=== PATIENT | female | born 1990 | race Caucasian/White ===

== ENCOUNTER 2016-10-23 00:47 | Emergency (ER) | payer OTHER ==
[2016-10-23 00:56] VITALS: RESP 18
--- NOTE | 2016-10-23 01:15 | EDPHY ---
H & P Stated Complaint: fell backwaaards and hit head, dizzy, + etoh HPI/ROS: HPI CHIEF COMPLAINT: Head injury after alcohol marijuana HISTORY OF PRESENT ILLNESS: This patient 26-year-old female, she presents emergency room she is otherwise healthy, she drank 4 beers and 1 shot of liquor and smoked marijuana fell backwards in a chair with head strike. She now has a posterior headache. Unclear if she had LOC. No seizure activity reported. Past Medical History: No significant medical Past Surgical History: No significant surgical history Social History: Denies daily use drugs alcohol tobacco products however had multiple beers and a shot and marijuana this evening. Family History: Noncontributory ROS REVIEW OF SYSTEMS: A comprehensive 10 point review of systems is otherwise negative aside from elements mentioned in the history of present illness. Exam Constitutional appears well nontoxic, triage nursing summary reviewed, vital signs reviewed, awake/alert. Eyes normal conjunctivae and sclera, EOMI, PERRLA. HENT head/neck: Small scalp hematoma posterior occiput, otherwise unremarkable traumatic exam normal inspection, atraumatic, moist mucus membranes , no epistaxis, neck supple/ no meningismus, no raccoon eyes. Respiratory clear to auscultation bilaterally, normal breath sounds, no respiratory distress, no wheezing. Cardiovascular rate normal, regular rhythm, no murmur, no edema, distal pulses normal. Gastrointestinal soft, non-tender, no rebound, no guarding, normal bowel sounds, no distension, no pulsatile mass. Genitourinary no CVA tenderness. Musculoskeletal no midline vertebral tenderness, full range of motion, no calf swelling, no tenderness of extremities, no meningismus, good pulses, neurovascularly intact. Skin pink, warm, & dry, no rash, skin atraumatic. Neurologic awake, alert and oriented x 3, AAOx3, moves all 4 extremities equally, motor intact, sensory intact, CN II-XII intact, normal cerebellar, normal vision, normal speech. Psychiatric normal mood/affect. Heme/Lymph/Immune no lymphadenopathy. Differential Diagnosis: Includes but is not limited to in a particular order closed-head injury, intracranial bleed, skull fracture, subdural, traumatic subarachnoid, acute alcohol intoxication, marijuana intoxication Medical Decision Making: Plan for this patient CT head without contrast for trauma. Breath alcohol. Re-evaluation: ED CT scan head without contrast: Negative for acute intracranial bleed or skull fracture. Soft tissue scalp hematoma. Source: Patient - Personal History LMP (Females 10-55): Now Current Tetanus Diphtheria and Acellular Pertussis (TDAP): Yes - Medical/Surgical History Other PMH: tonsilectomy - Social History Smoking Status: Never smoked Constitutional: Initial Vital Signs Temperature (C) 36.9 C 10/23/16 00:51 Heart Rate 91 10/23/16 00:51 Respiratory Rate 18 10/23/16 00:51 Blood Pressure 113/81 H 10/23/16 00:51 O2 Sat (%) 97 10/23/16 00:51 O2 Delivery Mode Room Air Allergies/Adverse Reactions: amoxicillin Allergy (Verified 10/23/16 00:50) Sulfa (Sulfonamide Antibiotics) Allergy (Verified 10/23/16 00:50) Home Medications: Medication Instructions Recorded Bcp 10/23/16 Departure - Departure Disposition: Home, Routine, Self-Care Clinical Impression: Alcohol intoxication Qualifiers: Complication of substance-induced condition: uncomplicated Qualified Code(s): F10.920 - Alcohol use, unspecified with intoxication, uncomplicated Head injury Qualifiers: Encounter type: initial encounter Qualified Code(s): S09.90XA - Unspecified injury of head, initial encounter Condition: Good Instructions: Head Injury (ED), Concussion (ED), Alcohol Intoxication (ED) Additional Instructions: 1. Return emergency room if you have worsening symptoms includes worsening headache, vomiting or you do not feel well. Drink lots of fluids today. Refrain from drinking alcohol.
[2016-10-23 01:54] VITALS: BP 118/79; PULSE 61; TEMP 98.2; O2SAT 98
== END 2016-10-23 01:55 | disposition home or self-care (01) ==
DX: S09.90XA Unspecified injury of head, initial encounter (principal); W07.XXXA Fall from chair, initial encounter; F10.920 Alcohol use, unspecified with intoxication, uncomplicated